=== PATIENT | male | born 1980 | race Caucasian/White ===

== ENCOUNTER 2018-03-20 12:34 | Emergency (ER) | payer BC, OTHER ==
[2018-03-20 13:07] VITALS: BP 147/101
--- NOTE | 2018-03-20 14:04 | UC ---
Cardiac HPI - HPI Summary HPI Summary: Pt presents with c/o chest pressure, SOB, diaphoresis, dizziness, lightheadedness and generalized malaise. Pt states he was driving home from [facility] this morning and had sudden onset of chest pressure. Pt states his sister of cardiac related disease "at young age" as well as father.". 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 Pt's fiancee states that he is "overworked" and does not "take care of himself" - History of Current Complaint Chief Complaint: UCChestPain Stated Complaint: CHEST PRESSURE,SOB,SWEATS Time Seen by Provider: 03/20/18 12:48 Hx Obtained From: Patient Onset/Duration: Sudden Onset, Still Present Timing: Constant Initial Severity: Moderate Current Severity: Moderate Pain Intensity: 5 Chest Pain Location: Upper Sternal Character: Heaviness, Pressure/Squeezing Aggravating Factor(s): Exertion Alleviating Factor(s): Exertion Associated Signs & Symptoms: Positive: Chest Pain - Risk Factors Pulmonary Embolism Risk Factors: Negative Cardiac Risk Factors: Diabetes - type 2 managed with diet Atrial Fibrillation: Negative TAD Risk Factors: Negative AMI/ACS Risk Factors: Family History - Allergy/Home Medications Allergies/Adverse Reactions: Allergies Allergy/AdvReac Type Severity Reaction Status Date / Time Penicillins Allergy Unknown Verified 03/20/18 12:41 Reaction Details Home Medications: Home Medications SUMAtriptan TAB* [Imitrex TAB*] 1 tab DAILY PRN 03/20/18 [History Confirmed ] PMH/Surg Hx/FS Hx/Imm Hx Previously Healthy: No Endocrine History: Diabetes Cardiovascular History: Hypertension - Surgical History Surgical History: Yes Surgery Procedure, Year, and Place: gallbladder. gastric bypass - Family History Known Family History: Positive: Cardiac Disease - Social History Occupation: Employed Full-time Lives: With Family Alcohol Use: Weekly Substance Use Type: None Smoking Status (MU): Heavy Every Day Tobacco Smoker Type: Cigarettes Amount Used/How Often: 1/2-1 PPD Length of Time of Smoking/Using Tobacco: 6 years Have You Smoked in the Last Year: Yes Review of Systems Constitutional: Fatigue Skin: Negative Eyes: Negative ENT: Negative Respiratory: Shortness Of Breath Cardiovascular: Chest Pain Gastrointestinal: Abdominal Pain Genitourinary: Negative Motor: Negative Neurovascular: Negative Musculoskeletal: Negative Neurological: Weakness Psychological: Negative Is Patient Immunocompromised?: No All Other Systems Reviewed And Are Negative: Yes Physical Exam Triage Information Reviewed: Yes Appearance: Ill-Appearing Vital Signs: Initial Vital Signs Temp 98.3 F 03/20/18 12:41 Pulse 70 03/20/18 12:41 Resp 16 03/20/18 12:41 BP 148/98 03/20/18 12:41 Pulse Ox 100 03/20/18 12:41 Vital Signs Reviewed: Yes Eye Exam: Normal ENT Exam: Normal Neck exam: Normal Respiratory Exam: Normal Cardiovascular Exam: Normal Abdomen Description: Positive: Other: - epigastirc and RUQ discomfort with palpation Musculoskeletal Exam: Normal Neurological Exam: Normal Psychological Exam: Normal Skin Exam: Normal - Assessment/Plan Course Of Treatment: Pt was recommneded to go directly to ER. Pt stated [facility]. Pt's francois stated shewould drive. Pt stable at time of discharge. I spoke with Yesenia Sebastian at [facility] and she accepted pt - Clinical Impression Provider Diagnoses: chest pain. abdominal pain Discharge - Sign-Out/Discharge Documenting (check all that apply): Patient Departure All imaging exams completed and their final reports reviewed: No Studies - Discharge Plan Condition: Stable Disposition: HOME-RECOMMEND TO ED Patient Education Materials: Chest Pain (ED), Abdominal Pain (ED) Referrals: Vladimir Crump DO [Primary Care Provider] - Additional Instructions: PLEASE GO DIRECTLY TO EMERGENCY ROOM RECOMMENDED. - Billing Disposition and Condition Condition: STABLE Disposition: Home-Recommend to ED - Attestation Statements Provider Attestation: I was available for consult. This patient was seen by the LISETTE. The patient was not presented to, seen by, or examined by me. -Eduar
== END 2018-03-20 13:22 | disposition home health service (06) ==
LOC: UCCORT 12:34
DX: R10.9 Unspecified abdominal pain (principal); R07.9 Chest pain, unspecified; Z88.0 Allergy status to penicillin; E11.9 Type 2 diabetes mellitus without complications; I10 Essential (primary) hypertension; F17.210 Nicotine dependence, cigarettes, uncomplicated
CPT/HCPCS: 93005; 99202; G0463

== ENCOUNTER 2019-04-04 06:00 | Emergency (ER) | payer BC, OTHER ==
[2019-04-04] MEDS ORDERED: Ondansetron TAB* 4 MG PO ONE (06:36)
[2019-04-04 07:02] VITALS: BP 141/82
--- NOTE | 2019-04-04 10:46 | ED ---
Back Pain - HPI Summary HPI Summary: This patient is a 38-year-old male presenting to the ED with right lower back pain just been present 1 week. He states the pain initiates just above the right buttocks radiating into the right gluteus and down the posterior leg affecting the right foot. Denies any foot drop. Patient remains ambulatory. He states he was diagnosed with sciatica last year into the left side, however has never had this in the right side. He states symptoms are worse with lying flat or lying on to the right hip, better with ambulation and sitting upright. Denies stretching. Unable to take NSAIDs. He states he was completing physical therapy last year which did not help so he was "discharge" from physical therapy. He has been taking Tylenol without relief. [facility] at [facility] and was given muscle relaxers. He states this does not help his symptoms. He denies any bladder or bowel dysfunction. He denies any sensory or tingling in the bilateral lower extremities. - History of Current Complaint Chief Complaint: EDBackInjuryPain Stated Complaint: NAUSEA/BACK PAIN PER PT Time Seen by Provider: 04/04/19 06:16 Hx Obtained From: Patient Onset/Duration: Gradual Onset Onset/Duration: Started Days Ago Timing: Constant Back Pain Location: Is Discrete @ - right sciatic notch radiating to the R posterior leg Severity Initially: Moderate Severity Currently: Moderate Pain Intensity: 7 Pain Scale Used: 0-10 Numeric Character: Aching Aggravating Symptom(s): Movement, Lifting Alleviating Symptom(s): Rest, Position Associated Signs And Symptoms: Negative: Swelling, Redness, Weakness, Numbness, Bladder Incontinence, Bowel Incontinence, Weight Loss, Pain with Weight Bearing - Risk Factors AAA Risk Factors: Negative TAD Risk Factors: Negative Cauda Equina Risk Factors: Negative Epidural Abscess Risk Factors: Negative - Allergies/Home Medications Allergies/Adverse Reactions: Allergies Allergy/AdvReac Type Severity Reaction Status Date / Time NSAIDS (Non-Steroidal Allergy Unknown Verified 04/04/19 06:04 Anti-Inflamma Reaction Details Penicillins Allergy Unknown Verified 04/04/19 06:03 Reaction Details Home Medications: Home Medications Lisinopril 20 mg PO DAILY 04/04/19 [History Confirmed 04/04/19] PMH/Surg Hx/FS Hx/Imm Hx Previously Healthy: Yes Endocrine/Hematology History: Reports: Hx Diabetes - type 2; off meds since bypass Cardiovascular History: Reports: Hx Hypertension - off meds - Surgical History Surgery Procedure, Year, and Place: gallbladder. gastric bypass - Immunization History Hx Pertussis Vaccination: No Immunizations Up to Date: Yes Infectious Disease History: No Infectious Disease History: Denies: Traveled Outside the [place] in Last 30 Days - Family History Known Family History: Positive: Cardiac Disease - Social History Occupation: Employed Full-time Lives: With Family Alcohol Use: Weekly Hx Substance Use: No Substance Use Type: Reports: None Smoking Status (MU): Heavy Every Day Tobacco Smoker Type: Cigarettes Amount Used/How Often: 1/2-1 PPD Length of Time of Smoking/Using Tobacco: 6 years Have You Smoked in the Last Year: Yes Review of Systems Negative: Fever, Chills, Fatigue, Skin Diaphoresis Negative: Epistaxis, Dental Pain Negative: Palpitations, Chest Pain Genitourinary: Negative Positive: no symptoms reported, see HPI Positive: Arthralgia - right lower back pain. Negative: Myalgia Neurological: Negative All Other Systems Reviewed And Are Negative: Yes Physical Exam Triage Information Reviewed: Yes Vital Signs On Initial Exam: Initial Vitals Temp Pulse Resp BP Pulse Ox 97.8 F 81 15 157/101 100 04/04/19 06:01 04/04/19 06:01 04/04/19 06:01 04/04/19 06:01 04/04/19 06:01 Vital Signs Reviewed: Yes Appearance: Positive: Well-Appearing, Well-Nourished Skin: Positive: Warm, Skin Color Reflects Adequate Perfusion Head/Face: Positive: Normal Head/Face Inspection Eyes: Positive: EOMI, NATALIE, Conjunctiva Clear Neck: Positive: Supple, No Lymphadenopathy Respiratory/Lung Sounds: Positive: Clear to Auscultation, Breath Sounds Present Cardiovascular: Positive: RRR, Pulses are Symmetrical in both Upper and Lower Extremities Musculoskeletal: Positive: Pain @ - right low back radiating to the R leg Neurological: Positive: Speech Normal Psychiatric: Positive: Normal, Affect/Mood Appropriate Procedures - Sedation Patient Received Moderate/Deep Sedation with Procedure: No Diagnostics - Vital Signs Vital Signs Temp Pulse Resp BP Pulse Ox 04/04/19 07:01 98.4 F 76 18 141/82 98 04/04/19 06:01 97.8 F 81 15 157/101 100 - Laboratory Lab Statement: Any lab studies that have been ordered have been reviewed, and results considered in the medical decision making process. Back Pain Course/Dx - Course Course Of Treatment: Physical examination, positive leg raise to the right side. Patient is able to plantarflex and dorsiflex without discomfort. Pain is most notably over the sciatic notch to the right side without pain to the left. No step-off noted. No scoliosis, lordosis or kyphosis. No pain to the cervical, thoracic or lumbar spine on palpation. Patient relates ambulatory. Able to abduct and adduct at the right hip joint. He states physical therapy has not helped in the past and he is currently taking muscle relaxers without relief. He is given a five-day course of steroids as well as pain medication. He is encouraged to follow up with his PCP for further evaluation and possible imaging. - Diagnoses Differential Diagnosis/HQI/PQRI: Positive: Compressive Cord Syndrome, Fracture, Strain, Sprain Provider Diagnoses: Sciatica Discharge ED - Sign-Out/Discharge Documenting (check all that apply): Patient Departure - Discharge Plan Condition: Good Disposition: HOME Prescriptions: HYDROcodone/ACETAMIN 5-325 MG* [[place] 5-325 TAB*] 1 tab PO Q4H PRN #18 tab MDD 6 PRN Reason: Pain Ondansetron ODT TAB* [Zofran 4 MG Odt TAB*] 4 mg PO Q6H PRN #12 tab.odt MDD 4 PRN Reason: Nausea predniSONE TAB* [Deltasone TAB*] 50 mg PO DAILY #5 tab MDD 1 Patient Education Materials: Sciatica (ED), Lumbar Radiculopathy (ED), Lower Back Exercises (ED) Referrals: Sam Berrios MD [Primary Care Provider] - Additional Instructions: Please follow up with PCP for further evaluation and physical therapy Hydrocodone up to every 4 hours as needed for pain, however you may take only at night as well DO NOT TAKE TYLENOL WHILE TAKING THIS MEDICATION Moist heat and stretching to the area will help Symptoms may last days to weeks If symptoms continue - please follow up with PCP for possible further imaging. - Billing Disposition and Condition Condition: GOOD Disposition: Home
== END 2019-04-04 07:03 | disposition home or self-care (01) ==
LOC: ED 06:00
DX: M54.41 Lumbago with sciatica, right side (principal); E11.9 Type 2 diabetes mellitus without complications; I10 Essential (primary) hypertension; Z88.6 Allergy status to analgesic agent; Z88.0 Allergy status to penicillin; F17.210 Nicotine dependence, cigarettes, uncomplicated
CPT/HCPCS: 99282; A9270-GY

== ENCOUNTER 2019-07-24 10:09 | Emergency (ER) | payer OTHER ==
[2019-07-24 10:41] VITALS: BP 151/107
[2019-07-24 11:05] LABS: Influenza A Molecular NEGATIVE (Negative); Influenza B Molecular NEGATIVE (Negative)
--- NOTE | 2019-07-24 11:36 | UC ---
Throat Pain/Nasal Gerald HPI - HPI Summary HPI Summary: Pt presents with c/o generalized malaise, cough, ST, fever, chills, REY, nasal congestion X 4 days. - History of Current Complaint Chief Complaint: UCGeneralIllness Stated Complaint: COUGH, EAR PAIN, CONGESTION Time Seen by Provider: 07/24/19 11:00 Hx Obtained From: Patient Onset/Duration: Sudden Onset, Lasting Days, Still Present, Worse Since - onset Severity: Moderate Pain Intensity: 0 Cough: Productive Associated Signs & Symptoms: Positive: Dysphagia, Nasal Discharge, Fever - Epiglottits Risk Factors Epiglottis Risk Factors: Sudden Onset - Allergies/Home Medications Allergies/Adverse Reactions: Allergies Allergy/AdvReac Type Severity Reaction Status Date / Time NSAIDS (Non-Steroidal Allergy Unknown Verified 07/24/19 10:38 Anti-Inflamma Reaction Details Penicillins Allergy Unknown Verified 07/24/19 10:38 Reaction Details Home Medications: Home Medications Acetaminophen [Tylenol Extra Strength] 1,000 mg PO ONCE PRN 07/24/19 [History Confirmed 07/24/19] PMH/Surg Hx/FS Hx/Imm Hx Previously Healthy: Yes Cardiovascular History: Hypertension - Surgical History Surgical History: Yes Surgery Procedure, Year, and Place: gallbladder. gastric bypass - Family History Known Family History: Positive: Cardiac Disease - Social History Occupation: [place]ed Full[place]time - [facility] [employer] Lives: With Family Alcohol Use: Rare Substance Use Type: None Smoking Status (MU): Light Every Day Tobacco Smoker Type: Cigarettes Amount Used/How Often: 1/4 ppd Length of Time of Smoking/Using Tobacco: 6 years Have You Smoked in the Last Year: Yes - Immunization History Vaccination Up to Date: No Review of Systems All Other Systems Reviewed And Are Negative: Yes Constitutional: Positive: Fever, Chills, Fatigue Skin: Positive: Negative Eyes: Positive: Negative ENT: Positive: Sore Throat, Sinus Congestion Respiratory: Positive: Cough Cardiovascular: Positive: Negative Gastrointestinal: Positive: Negative Genitourinary: Positive: Negative Motor: Positive: Negative Neurovascular: Positive: Negative Musculoskeletal: Positive: Myalgia Neurological: Positive: Headache Psychological: Positive: Negative Is Patient Immunocompromised?: No Physical Exam Triage Information Reviewed: Yes Appearance: Ill-Appearing Vital Signs: Initial Vital Signs Temp 99.1 F 07/24/19 10:36 Pulse 76 07/24/19 10:36 Resp 18 07/24/19 10:36 BP 151/107 07/24/19 10:36 Pulse Ox 100 07/24/19 10:36 Vital Signs Reviewed: Yes Eye Exam: Normal ENT: Positive: Pharyngeal erythema, Nasal congestion, Other Dental Exam: Normal Neck exam: Normal Respiratory Exam: Normal Cardiovascular Exam: Normal Musculoskeletal Exam: Normal Neurological Exam: Normal Psychological Exam: Normal Skin Exam: Normal Throat Pain/Nasal Course/Dx - Course Course Of Treatment: Pt was informed that BP was elevated at today's visit and instructed to f/u with PCP. - Differential Dx/Diagnosis Differential Diagnosis/HQI/PQRI: Influenza, URI Provider Diagnosis: Viral syndrome Discharge ED - Sign-Out/Discharge Documenting (check all that apply): Patient Departure All imaging exams completed and their final reports reviewed: No Studies - Discharge Plan Condition: Stable Disposition: HOME Prescriptions: Guaifenesin/Pseudoephedrne HCl [Mucinex D ER 600-60 mg Tablet] 1 each PO Q12H # 14 tab.er.12h Patient Education Materials: Viral Syndrome (ED) Forms: *Work Release Referrals: Sam Berrios MD [Primary Care Provider] - As Soon As Possible Additional Instructions: Please follow up with your PCP as needed. Please note that your Blood Pressure was elevated at today's visit. To help manage your symptoms, Coricidin brand medication or it's generic equivalent may be safe to use for you. Please check with the pharmacist prior to purchasing. - Billing Disposition and Condition Condition: STABLE Disposition: Home
== END 2019-07-24 11:43 | disposition home or self-care (01) ==
LOC: UCCORT 10:09
DX: B34.9 Viral infection, unspecified (principal); I10 Essential (primary) hypertension; J39.2 Other diseases of pharynx; J02.9 Acute pharyngitis, unspecified; M79.10 Myalgia, unspecified site; R51 Headache; R05 Cough; R09.81 Nasal congestion; R53.83 Other fatigue; Z88.0 Allergy status to penicillin; Z88.6 Allergy status to analgesic agent
CPT/HCPCS: 87651; 99212; G0463

== ENCOUNTER 2019-09-08 12:39 | Emergency (ER) | payer OTHER ==
--- OUTSIDE RECORDS SUMMARY | 2019-09-08 12:46 | XMS REPORT | Continuity of Care Document ---
:1980 External Reference #:[id number] Author Name Sam Berrios MD Address [address] [place] [id number] Care Team Providers Name Role Phone Esther Parry R., MD - Emergency Care Team Information Commodity Supervisor Medicine Sam Berrios MD - Family Medicine Care Team Information Commodity Supervisor Problems Active Problems Provider Date Essential hypertension Sam Berrios MD Onset: 12/21/2018 Type 2 diabetes mellitus Sam Berrios MD Onset: 12/21/2018 Social History Type Date Description Comments Sex Unknown ETOH Use Rarely consumes alcohol Tobacco Use Start: Unknown Light tobacco smoker (10 or fewer cigarettes/day) Smoking Status Reviewed: 08/12/19 Light tobacco smoker (10 or fewer cigarettes/day) Allergies, Adverse Reactions, Alerts Active Allergies Reaction Severity Comments Date Penicillin Mild 12/21/2018 NSAIDS Severe 12/21/2018 Medications Active Medications SIG Qnty Indications Ordering Date Provider Lisinopril 1 by mouth every 30tabs I10 Sam Berrios MD 08/12/2019 30mg day Tablets Sumatriptan 1 tab as needed for 30tabs G43.009 Sam Berrios MD 08/12/2019 Succinate migraine lopez, can 25mg repeat 1 tab in 2 Tablets hours if no improvement Claritin 1 tab by mouth 30tabs J30.9 Sam Berrios MD 08/12/2019 10mg every day as needed Tablets Wellbutrin XL 1 tab by mouth 90tabs F43.21 Sam Berrios MD 01/12/2019 150mg every day as Tablets ER 24HR directed Ventolin HFA 2 puffs q4-6 hours 8gm R06.02 Sam Berrios MD 12/24/2018 as needed 108(90Base) mcg/Act Aerosol Blood Pressure Kit check bp once a day 1units I10 Sam Berrios MD 2018 and keep log Kit generic acceptable Buspirone HCL tk 1 t by mouth 180tabs Sam Berrios MD 10mg twice a day Tablets Trazodone HCL tk 1 t by mouth 90tabs Sam Berrios MD 50mg every night at Tablets bedtime as needed for sleep Immunizations Description No Information Available Vital Signs Date Vital Result Comment 08/12/2019 10:34am BP Systolic 160 mmHg BP Diastolic 100 mmHg Body Temperature 97.0 F Heart Rate 76 /min Respiratory Rate 17 /min Height 75 inches 6'3" Weight 239.00 lb BMI (Body Mass Index) 29.9 kg/m2 BSA (Body Surface Area) 2.37 m2 [place] body weight in kilograms 89 kg O2 % BldC Oximetry 98 % 01/12/2019 10:52am BP Systolic 128 mmHg BP Diastolic 84 mmHg Body Temperature 99.0 F Heart Rate 95 /min Height 75 inches 6'3" Weight 235.50 lb BMI (Body Mass Index) 29.4 kg/m2 BSA (Body Surface Area) 2.35 m2 [place] body weight in kilograms 89 kg O2 % BldC Oximetry 97 % Results Test Acquired Date Facility Test Result H/L Range Note Laboratory test 07/24/2019 [facility] Rapid Strep Negative Negative 1 finding [phone] Molecular Rapid Influenza 07/24/2019 [facility] Influenza A NEGATIVE Negative A & B Molecular [phone] Molecular Influenza B Molecular NEGATIVE Negative 2 1 Ticket Printer: [id number] Suboptimal collection technique may reduce sensitivity of test. Refer to the [facility] Test Catalog for collection information: [email or web address] As with all diagnostic procedures, the laboratory results obtained should be used in conjunction with other clinical information available to the physician, including confirmation by another method, as applicable. 2 Ticket Printer: [id number] Procedures Description No Information Available Medical Devices Description No Information Available Encounters Type Date Location Provider Dx Diagnosis Office Visit 08/12/2019 Family Medicine Sam Berrios MD I10 Essential ( primary) 10:[address] hypertension Z79.899 Other [facility] (current) drug therapy J30.9 Allergic rhinitis, unspecified G43.009 Migraine w/o aura, not intractable, w/o status migrainosus Assessments Date Code Description Provider 08/12/2019 I10 Essential (primary) hypertension Sam Berrios MD 08/12/2019 Z79.899 Other [facility] (current) drug therapy Sam Berrios MD 08/12/2019 J30.9 Allergic rhinitis, unspecified Sam Berrios MD 08/12/2019 G43.009 Migraine without aura, not intractable, without Sam Berrios MD status migrainosus Plan of Treatment Future Appointment(s):09/22/2019 10:50 am - Sam Berrios MD at [facility] RD08/12/2019 - Sam Berrios MDI10 Essential (primary) hypertensionNew Medication:Lisinopril 30 mg - 1 by mouth every dayZ79.899 Other [facility] ( current) drug therapyNew Labs:Comprehensive Metabolic Panel, Ordered: LDL Cholesterol Profile, Ordered: 08/12/19TS Reflex FT4 And/Or FT3, Ordered: 08/12/19J30.9 Allergic rhinitis, unspecifiedNew Medication:Claritin 10 mg - 1 tab by mouth every day as jxbiuzD04.009 Migraine without aura, not intractable, without status migrainosusNew Medication:Sumatriptan Succinate 25 mg - 1 tab as needed for migraine lopez, can repeat 1 tab in 2 hours if no improvement Functional Status Description No Information Available Mental Status Description No Information Available Referrals Description No Information Available
== END 2019-09-08 14:06 | disposition left against medical advice (07) ==
LOC: UCCORT 12:39
DX: Z53.21 Procedure and treatment not carried out due to patient leaving prior to being seen by health care provider (principal)